=== PATIENT | female | born 1935 | race Caucasian/White ===

== ENCOUNTER 2019-07-05 20:07 | Emergency (ER) | payer OTHER ==
--- OUTSIDE RECORDS SUMMARY | 2019-07-05 20:15 | XMS REPORT | Continuity of Care Document ---
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 Jw Nieto MD Onset: 04/2014 heart failure Hypothyroidism Jw Nieto MD Onset: 11/05/2013 Acute exacerbation of chronic obstructive airways Jw Nieto MD Onset: 2013 disease Cataract Jw Nieto MD Onset: 08/07/2014 Social History Type Date Description Comments Sex Unknown ETOH Use Never used alcohol Tobacco Use Start: Unknown Patient has never smoked Smoking Status Reviewed: 11/08/17 Patient has never smoked Allergies, Adverse Reactions, Alerts Active Allergies Reaction Severity Comments Date Cephalexin Diarrhea 06/21/2018 Inactive Allergies NKDA 11/05/2013 Medications Active Medications SIG Qnty Indications Ordering Date Provider Synthroid 1 by mouth every 90tabs Jw Nieto MD 03/28/2018 75mcg day take on empty Tablets stomache without other medicatins or food Norvasc 1 by mouth every 90tabs Jw Nieto MD 11/23/2016 5mg Tablets day [place] for gait 1unjames Nieto MD 11/23/2016 Wheels/5 Adjustment instability Holes/-11/06" 1-11/06" Misc Vitamin B12 as directed tab 2 Jw Nieto MD 09/21/2015 1000mcg by mouth every day Tablets Ocuvite-Lutein 1 tab po qd Jw Nieto MD 09/21/2015 20mg Capsules Omeprazole 1 po qd 90caps Jw Nieto MD 10/17/2014 40mg Capsules Albuterol Sulfate as directed four 100unjames Nieto MD 11/05/2013 times a day prn. (2.5mg/3ML) 0.083% Nebulizer Ventolin HFA 2 puff qid prn 1units Jw Nieto MD 11/05/2013 108(90Base) mcg/Act Aerosol Alendronate Sodium take 1 tablet by 12tatori Nieto MD 11/05/2013 mouth weekly 70mg Tablets Metoprolol Tartrate 1 by mouth every 90tabs Jw Nieto MD 11/05/2013 day 50mg Tablets Gemfibrozil 1 po qd 90tabs Jw Nieto MD 11/05/2013 600mg Tablets Stiolto Respimat 2 puffs once daily Unknown 2.5-2.5mcg/Act Aerosol Coricidin HBP Cold & as needed Unknown Flu Tablets Robitussin Cough & as needed Unknown Chest Congestion DM Adult 20-400mg/20ML Liquid Fluocinonide as needed for Unknown 0.05% psoriasis Solution Vitamin E Blend 1 tab po qd Unknown 800Iu Capsules Vitamin C 1 per day Unknown 500mg Tablets Fish Oil 1 per day Unknown 1200mg Capsules Vitamin D3 1 per day Unknown 2000Unit Capsules Vitamin A 1 per day Jw Nieto MD 8000Unit Capsules Systane as needed for dry Unknown 0.4-0.3% Gel eye Probiotic Colon 1 tab po qd Unknown Support Capsules Cranberry 1 tab po qd Unknown Concentrate 500mg Capsules Beta Carotene 1 tab po qd Unknown [id number] Capsules Immunizations CPT Code Status Date Vaccine Lot # [id number] Given 07/02/2019 Influenza Virus (Afluria) Split Virus 3 Years [id number] Of Age And Older Q2035 Given 08/10/2018 Influenza Virus (Afluria) Split Virus 3 Years Of Age And Older [id number] Given 08/10/2018 Influenza Virus (Afluria) Split Virus 3 Years Of Age And Older [id number] Given 09/13/2017 Influenza Virus (Afluria) Split Virus 3 Years [id number] Of Age And Older [id number] Given 11/23/2016 Pneumovax Polyvalent Inj Im [id number] Given 2015 Pneumococcal Conjugate Vaccine 13 Valent For [id number] Intramuscular Use Vital Signs Date Vital Result Comment 07/02/2019 10:47am BP Systolic 128 mmHg BP Diastolic 76 mmHg Heart Rate 108 /min Weight 137.00 lb O2 % BldC Oximetry 96 % 04/30/2019 10:53am BP Systolic 128 mmHg BP Diastolic 70 mmHg Heart Rate 58 /min Results Test Date Facility Test Result H/L Range Note Urinalysis With 05/13/2019 [facility] Urine Color RED Yellow [address] [place] [address] [phone] Urine Clarity TURBID Clear Urine Glucose - Dipstick NEGATIVE mg/dL Negative Urine Bilirubin - Dipstick SMALL Abnormal Negative Urine Ketone NEGATIVE mg/dL Negative Urine Specific [place] 1.025 Normal 1.010-1.030 Urine Blood LARGE Abnormal Negative Urine PH 6.5 Normal 6.5-7.5 Urine Protein - Dipstick >=300 mg/dL High Negative Urine Urobilinogen - Dipstick 0.2 E.U./dL Normal 0.2-1.0 Urine Nitrite - Dipstick NEGATIVE Negative Urine Leuk Esterase SMALL Abnormal Negative Urine RBC TNTC rbc/hpf High 0-2 Urine WBC > 50 wbc/hpf High 0-7 Urine Epithelial Cells FEW /lpf None Seen Urine Bacteria FEW None Seen Source: URINE, CLEAN CAT <SEE NOTE> 2 Urine Culture 05/13/2019 [facility] Urine Culture KLEBSIELLA Abnormal [address] [place]UM <[place] [address] NOTE> [phone] Quantity 10,000 - 50,000 <SEE NOTE> 4 Ast-GN67 05/13/2019 [facility] Nitrofurantoin <=[address] [place] [address] [phone] Trimethoprim/Sulfamethoxazole <=20 Susceptible Ampicillin 16 Resistant Cefazolin <=4 Susceptible Ampicillin/Sulbactam 4 Susceptible Ciprofloxacin <=0.25 Susceptible Piperacillin/Tazobactam <=4 Susceptible Ceftazidime <=1 Susceptible Ceftriaxone <=1 Susceptible Cefepime <=1 Susceptible Levofloxacin <=0.12 Susceptible Imipenem 1 Susceptible Gentamicin <=1 Susceptible Tobramycin <=1 Susceptible CBS W/Automated 05/13/2019 [facility] White Blood 16.7 K/uL High 3.1-10.[address] [place] [address] [phone] Red Blood Count 3.73 M/uL Low 3.90-5.40 Hemoglobin 11.7 gm/dL Normal 11.6-15.8 Hematocrit 35.3 % Low 36.0-46.1 Mean Cell Volume 94.6 fl Normal 80.9-99.0 Mean Corpuscular HGB 31.4 pg Normal 25.9-32.7 Mean Corpuscular HGB Conc 33.1 g/dL Normal 30.8-34.3 Platelet Count 350 K/uL Normal 155-360 Red Cell Distri Width SD 48.9 fl High 36-47 Red Cell Distri Width %CV 14.2 % Normal 11.7-14.4 Mean Platelet Volume 11.1 fl Normal 8.9-12.4 Neut% 75.4 % High 40.4-72.8 Lymph % 8.6 % Low 20.0-42.0 Cross % 11.5 % Normal 4.3-13.2 Eo% 3.5 % Normal 0.0-6.6 Bas% 0.5 % Normal 0.0-1.1 Immature Grans 0.5 % Normal 0.0-5.0 NRBC % 0.0 /100WBC < 10/ 100 WBC Neut# 12.54 K/uL High 1.8-7.0 Lymph # 1.44 K/uL Normal 1.0-4.0 Cross # 1.92 K/uL High 0.3-0.9 Eos # 0.59 K/uL High 0.0-0.5 Baso # 0.08 K/uL Normal 0.0-0.1 Immature Grans Absolute 0.08 K/uL NRBC # 0.00 K/uL Slide Review 05/13/2019 [facility] Slide Review DIFF ORDERED [address] [place] [address] [phone] Differential-WBC 05/13/2019 [facility] Total Cells 100 #CELLS Confirm [address] [place] [address] [phone] Band% 8 % Normal 0-8 Neutrophils% 72 % Normal 33-73 Lymph% 5 % Low 20-42 Monocyte% 12 % High 0-10 Eosinophil% 2 % Normal 0-5 Basophil% 1 % Normal 0-2 Platelet Estimate NORMAL Anisocytosis 0-1+ Macrocytosis 0-1+ Differential Comment FEW LRG PLTS Comprehensive 05/13/2019 [facility] Glucose 117 mg/ dL High 74-106 Metabolic Panel [address] [place] [address] [phone] BUN 39 mg/dL High 7-18 Creatinine 1.3 mg/dL Normal 0.6-1.3 Glom Filtration Rate, Estimate 41 mL/min >60 If 50 mL/min >60 5 BUN/Creat 30.0 ratio Sodium 143 mmol/L Normal 136-145 Potassium 4.5 mmol/L Normal 3.5-5.1 Chloride 117 mmol/L Critical high 98-107 Carbon Dioxide 15 mmol/L Low 21-32 Anion Gap 11 mEq/L Normal 8-16 Calcium 9.1 mg/dL Normal 8.5-10.1 Total Protein 7.7 g/dL Normal 6.4-8.2 Albumin 3.7 g/dL Normal 3.4-5.0 Globulin 4.0 g/dL Normal 1.9-4.3 Alb/Glob 0.9 ratio Bilirubin,Total 0.6 mg/dL Normal 0.2-1.0 Sgot/Ast 12 U/L Low 15-37 6 SGPT/Alt 14 U/L Normal 12-78 Alkaline Phosphatase 114 U/L Normal 45-117 Laboratory test 05/13/2019 [facility] Lipase 50 U/L Low 56-[address] [place], [place] [id number] [phone] Protime 05/13/2019 [facility] Protime 15.1 seconds High 12.0-14.[address] [place] [address] [phone] Inr 1.2 High 0.9-1.1 7 Basic Metabolic 04/10/2019 [facility] Glucose 96 mg/ dL Normal 74-106 [address] [place] [address] [phone] BUN 30 mg/dL High 7-18 Creatinine 0.9 mg/dL Normal 0.6-1.3 Glom Filtration Rate, Estimate >60 mL/min >60 If >60 mL/min >60 9 BUN/Creat 33.3 ratio Sodium 140 mmol/L Normal 136-145 Potassium 4.1 mmol/L Normal 3.5-5.1 Chloride 109 mmol/L High 98-107 Carbon Dioxide 22 mmol/L Normal 21-32 Anion Gap 9 mEq/L Normal 8-16 Calcium 9.4 mg/dL Normal 8.5-10.1 Basic Metabolic 04/09/2019 [facility] Glucose 99 mg/ dL Normal 74-[address] [place] [address] [phone] BUN 33 mg/dL High 7-18 Creatinine 1.0 mg/dL Normal 0.6-1.3 Glom Filtration Rate, Estimate 56 mL/min >60 If >60 mL/min >60 10 BUN/Creat 33.0 ratio Sodium 140 mmol/L Normal 136-145 Potassium 3.9 mmol/L Normal 3.5-5.1 Chloride 110 mmol/L High 98-107 Carbon Dioxide 23 mmol/L Normal 21-32 Anion Gap 7 mEq/L Low 8-16 Calcium 9.4 mg/dL Normal 8.5-10.1 CBS W/Automated 04/09/2019 [facility] White 8.8 K/uL Normal 3.1-10.[address] [place] [address] Count [phone] Red Blood Count 4.34 M/uL Normal 3.90-5.40 Hemoglobin 13.0 gm/dL Normal 11.6-15.8 Hematocrit 41.0 % Normal 36.0-46.1 Mean Cell Volume 94.5 fl Normal 80.9-99.0 Mean Corpuscular HGB 30.0 pg Normal 25.9-32.7 Mean Corpuscular HGB Conc 31.7 g/dL Normal 30.8-34.3 Platelet Count 346 K/uL Normal 155-360 Red Cell Distri Width SD 47.8 fl High 36-47 Red Cell Distri Width %CV 13.9 % Normal 11.7-14.4 Mean Platelet Volume 11.5 fl Normal 8.9-12.4 Neut% 51.9 % Normal 40.4-72.8 Lymph % 25.8 % Normal 20.0-42.0 Cross % 11.9 % Normal 4.3-13.2 Eo% 8.9 % High 0.0-6.6 Bas% 1.0 % Normal 0.0-1.1 Immature Grans 0.5 % Normal 0.0-5.0 NRBC % 0.0 /100WBC < 10/ 100 WBC Neut# 4.55 K/uL Normal 1.8-7.0 Lymph # 2.26 K/uL Normal 1.0-4.0 Cross # 1.04 K/uL High 0.3-0.9 Eos # 0.78 K/uL High 0.0-0.5 Baso # 0.09 K/uL Normal 0.0-0.1 Immature Grans Absolute 0.04 K/uL NRBC # 0.00 K/uL Basic Metabolic 04/08/2019 [facility] Glucose 95 mg/ dL Normal 74-[address] [place], [place] [id number] [phone] BUN 28 mg/dL High 7-18 Creatinine 1.0 mg/dL Normal 0.6-1.3 Glom Filtration Rate, Estimate 56 mL/min >60 If >60 mL/min >60 11 BUN/Creat 28.0 ratio Sodium 142 mmol/L Normal 136-145 Potassium 3.9 mmol/L Normal 3.5-5.1 Chloride 109 mmol/L High 98-107 Carbon Dioxide 23 mmol/L Normal 21-32 Anion Gap 10 mEq/L Normal 8-16 Calcium 9.0 mg/dL Normal 8.5-10.1 CBC 04/08/2019 [facility] White Blood Count 9.0 K/uL Normal 3.1-10.[address] [place] [address] [phone] Red Blood Count 4.04 M/uL Normal 3.90-5.40 Hemoglobin 12.5 gm/dL Normal 11.6-15.8 Hematocrit 37.7 % 36.0-46.1 Mean Cell Volume 93.3 fl Normal 80.9-99.0 Mean Corpuscular HGB 30.9 pg Normal 25.9-32.7 Mean Corpuscular HGB Conc 33.2 g/dL Normal 30.8-34.3 Platelet Count 356 K/uL Normal 155-360 Red Cell Distri Width SD 47.7 fl High 36-47 Red Cell Distri Width %CV 14.0 % Normal 11.7-14.4 Mean Platelet Volume 11.7 fl Normal 8.9-12.4 NRBC % 0.0 /100WBC < 10/ 100 WBC CBC 04/07/2019 [facility] White Blood Count 9.4 K/uL Normal 3.1-10.[address] [place], [place] [id number] [phone] Red Blood Count 4.59 M/uL Normal 3.90-5.40 Hemoglobin 14.4 gm/dL Normal 11.6-15.8 Hematocrit 42.1 % Normal 36.0-46.1 Mean Cell Volume 91.7 fl Normal 80.9-99.0 Mean Corpuscular HGB 31.4 pg Normal 25.9-32.7 Mean Corpuscular HGB Conc 34.2 g/dL Normal 30.8-34.3 Platelet Count 382 K/uL High 155-360 Red Cell Distri Width SD 46.6 fl Normal 36-47 Red Cell Distri Width %CV 14.0 % Normal 11.7-14.4 Mean Platelet Volume 11.2 fl Normal 8.9-12.4 NRBC % 0.0 /100WBC < 10/ 100 WBC Basic Metabolic 04/07/2019 [facility] Glucose 148 mg/ dL High 74-[address] [place] [address] [phone] BUN 21 mg/dL High 7-18 Creatinine 0.9 mg/dL Normal 0.6-1.3 Glom Filtration Rate, Estimate >60 mL/min >60 If >60 mL/min >60 12 BUN/Creat 23.3 ratio Sodium 140 mmol/L Normal 136-145 Potassium 3.6 mmol/L Normal 3.5-5.1 Chloride 112 mmol/L High 98-107 Carbon Dioxide 19 mmol/L Low 21-32 Anion Gap 9 mEq/L Normal 8-16 Calcium 9.6 mg/dL Normal 8.5-10.1 CBS W/Automated 04/06/2019 [facility] White 9.0 K/uL Normal 3.1-10.[address] [place] [address] Count [phone] Red Blood Count 4.24 M/uL Normal 3.90-5.40 Hemoglobin 13.0 gm/dL Normal 11.6-15.8 Hematocrit 39.8 % Normal 36.0-46.1 Mean Cell Volume 93.9 fl Normal 80.9-99.0 Mean Corpuscular HGB 30.7 pg Normal 25.9-32.7 Mean Corpuscular HGB Conc 32.7 g/dL Normal 30.8-34.3 Platelet Count 352 K/uL Normal 155-360 Red Cell Distri Width SD 47.2 fl High 36-47 Red Cell Distri Width %CV 13.9 % Normal 11.7-14.4 Mean Platelet Volume 11.6 fl Normal 8.9-12.4 Neut% 57.5 % Normal 40.4-72.8 Lymph % 23.1 % Normal 20.0-42.0 Cross % 9.8 % Normal 4.3-13.2 Eo% 8.5 % High 0.0-6.6 Bas% 0.8 % Normal 0.0-1.1 Immature Grans 0.3 % Normal 0.0-5.0 NRBC % 0.0 /100WBC < 10/ 100 WBC Neut# 5.18 K/uL Normal 1.8-7.0 Lymph # 2.08 K/uL Normal 1.0-4.0 Cross # 0.88 K/uL Normal 0.3-0.9 Eos # 0.77 K/uL High 0.0-0.5 Baso # 0.07 K/uL Normal 0.0-0.1 Immature Grans Absolute 0.03 K/uL NRBC # 0.00 K/uL Basic Metabolic 04/06/2019 [facility] Glucose 104 mg/ dL Normal 74-[address] [place] [address] [phone] BUN 18 mg/dL Normal 7-18 Creatinine 0.8 mg/dL Normal 0.6-1.3 Glom Filtration Rate, Estimate >60 mL/min >60 If >60 mL/min >60 13 BUN/Creat 22.5 ratio Sodium 142 mmol/L Normal 136-145 Potassium 3.7 mmol/L Normal 3.5-5.1 Chloride 114 mmol/L High 98-107 Carbon Dioxide 20 mmol/L Low 21-32 Anion Gap 8 mEq/L Normal 8-16 Calcium 8.9 mg/dL Normal 8.5-10.1 Ua RFX Micro & 04/05/2019 [facility] Urine Color YELLOW Yellow Culture II [address] [place] [address] [phone] Urine Clarity CLEAR Clear Urine Glucose - Dipstick NEGATIVE mg/dL Negative Urine Bilirubin - Dipstick NEGATIVE Negative Urine Ketone NEGATIVE mg/dL Negative Urine Specific [place] <= 1.005 Low 1.010-1.030 Urine Blood NEGATIVE Negative Urine PH 6.5 Normal 6.5-7.5 Urine Protein - Dipstick 30 mg/dL High Negative Urine Urobilinogen - Dipstick 0.2 E.U./dL Normal 0.2-1.0 Urine Nitrite - Dipstick NEGATIVE Negative Urine Leuk Esterase NEGATIVE Negative Source: URINE, CLEAN CAT <SEE NOTE> 14 Aot Request 04/05/2019 [facility] Aot Request Test(s ) added [address] [place] [address] [phone] Tests to be added: crp, sed rate Aot Request 04/05/2019 [facility] Aot Request Test(s ) added 16 [address] [facility] [place] [address] [phone] Tests to be added: free T4 1 VAGINAL BLEEDING 2 URINE, CLEAN CATCH 3 KLEBSIELLA PNEUMONIAE 4 10,000 - 50,000 CFU/mL 5 Note: Persistent reduction for 3 months or more in an eGFR <60 mL/min/1.73 m2 defines CKD. Patients with eGFR values >/=60 mL/min/1.73 m2 may also have CKD if evidence of persistent proteinuria is present. The original MDRD equation for estimated GFR is not valid for patients less than 18 years of age. Additional information may be found at [email or web address]. 6 Values below the stated reference ranges of AST and ALT can be seen in normal populations. Clinical correlation is suggested. 7 THERAPEUTIC INR RANGE: 2.0 - 3.0 DVT, Pulmonary embolus, prophylaxis against venous thrombosis or systemic embolization in high risk patients. 2.5 - 3.5 Mechanical heart valves 8 ATRIAL FIBRILLATION NEW 9 Note: Persistent reduction for 3 months or more in an eGFR <60 mL/min/1.73 m2 defines CKD. Patients with eGFR values >/=60 mL/min/1.73 m2 may also have CKD if evidence of persistent proteinuria is present. The original MDRD equation for estimated GFR is not valid for patients less than 18 years of age. Additional information may be found at [email or web address]. 10 Note: Persistent reduction for 3 months or more in an eGFR <60 mL/min/1.73 m2 defines CKD. Patients with eGFR values >/=60 mL/min/1.73 m2 may also have CKD if evidence of persistent proteinuria is present. The original MDRD equation for estimated GFR is not valid for patients less than 18 years of age. Additional information may be found at [email or web address]. 11 Note: Persistent reduction for 3 months or more in an eGFR <60 mL/min/1.73 m2 defines CKD. Patients with eGFR values >/=60 mL/min/1.73 m2 may also have CKD if evidence of persistent proteinuria is present. The original MDRD equation for estimated GFR is not valid for patients less than 18 years of age. Additional information may be found at [email or web address]. 12 Note: Persistent reduction for 3 months or more in an eGFR <60 mL/min/1.73 m2 defines CKD. Patients with eGFR values >/=60 mL/min/1.73 m2 may also have CKD if evidence of persistent proteinuria is present. The original MDRD equation for estimated GFR is not valid for patients less than 18 years of age. Additional information may be found at [email or web address]. 13 Note: Persistent reduction for 3 months or more in an eGFR <60 mL/min/1.73 m2 defines CKD. Patients with eGFR values >/=60 mL/min/1.73 m2 may also have CKD if evidence of persistent proteinuria is present. The original MDRD equation for estimated GFR is not valid for patients less than 18 years of age. Additional information may be found at [email or web address]. 14 URINE, CLEAN CATCH 15 Tests: crp, sed rate Instructions: 16 Tests: free T4 Instructions: Procedures Description No Information Available Medical Devices Description No Information Available Encounters Type Date Location Provider Dx Diagnosis Office Visit 07/02/2019 10:30a Main Office Jw Nieto MD M54.42 Lumbago with sciatica, left side R31.9 Hematuria, unspecified Office Visit 04/30/2019 10:45a Main Office Briana Julien M54.42 Lumbago with M.D. 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 04/30/2019 J44.9 Chronic obstructive pulmonary disease, Briana Julien M.D. unspecified 04/30/2019 E03.9 Hypothyroidism, darwinified Briana Julien M.D. 04/30/2019 M15.9 Polyosteoarthritis, unspecified Briana Julien M.D. 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 Jw Nieto MD 01/01/2019 N30.80 Other cystitis without hematuria Jw Nieto MD 01/01/2019 I11.9 Hypertensive heart disease without heart failure Jw Nieto MD 01/01/2019 E03.9 Hypothyroidism, unspecified Jerrodyn MD Emilia 01/01/2019 M15.9 Polyosteoarthritis, unspecified Jerrodyn MD Emilia 01/01/2019 J44.9 Chronic obstructive pulmonary disease, Jerrodyn MD Emilia unspecified 01/01/2019 E66.9 Obesity, unspecified Jw Nieto MD Plan of Treatment Future Appointment(s):10/01/2019 8:00 am - Nurse at Main [facility]9910/09/2019 1: 00 pm - Jw Nieto MD at Main [facility]9707/02/2019 - Jw Nieto MDM54.42 Lumbago with sciatica, left sideComments:NO FURTHUR COMPLAINTSIMAGING STUDIES [id number] Hematuria, unspecifiedComments:IN APRIL, ED IE FOR SAME, CALDERON CATH IN AND REMOVEDMANAGED BY DR Wilson:REFER TO [facility] FOR EVALUATION.SHE IS LARGELY HOME BOUND EXCEPT FOR PHYSICAIN VISITSRTO DECGHP, LIPIDS BEFORE VISIT Functional Status Description No Information Available Mental Status Description No Information Available Referrals Description No Information Available
--- OUTSIDE RECORDS SUMMARY | 2019-07-05 20:15 | XMS REPORT | Continuity of Care Document ---
:1935 External Reference #:[id number] Author Name Jw Nieto MD (transmitted by agent of provider Teresa Simons) Address [address] [place] [address] Problems Active Problems Provider Date Benign hypertensive [...] Nieto MD 11/23/2016 5mg Tablets day Walker [place] for gait 1units Jw Nieto MD 11/23/2016 Wheels/5 Adjustment instability Holes/-11/06" 1-11/06" Misc Citalopram tab 1 by mouth 90tatori Nieto MD 12/23/2015 Hydrobromide every day 20mg Tablets Vitamin B12 as directed tab 2 Jw Nieto MD 09/21/2015 1000mcg by mouth every day Tablets Ocuvite-Lutein 1 tab po qd Jw Nieto MD 09/21/2015 20mg Capsules Omeprazole 1 po qd 90caps Jw Nieto MD 10/17/[address] Albuterol Sulfate as directed four 100unjames Nieto MD 11/05/2013 times a day prn. (2.5mg/3ML) 0.083% Nebulizer Ventolin HFA 2 puff qid prn 1unjames Nieto MD 11/05/2013 108(90Base) mcg/Act Aerosol Alendronate [...] Beta Carotene 1 tab po qd Unknown [id number] Capsules Immunizations CPT Code Status Date Vaccine Lot # [id number] Given 08/10/2018 Influenza Virus (Afluria) Split Virus 3 Years Of Age And Older Q2035 Given 08/10/2018 Influenza Virus (Afluria) Split Virus 3 Years Of Age And Older Q2035 Given 09/13/2017 Influenza Virus (Afluria) Split Virus 3 Years Of [id number] Age And Older [id number] Given 11/23/2016 Pneumovax Polyvalent Inj Im [id number] Given 2015 Pneumococcal Conjugate Vaccine 13 Valent For [id number] Intramuscular Use Vital Signs Date Vital Result Comment 07/02/2019 10:47am BP Systolic 128 mmHg BP Diastolic 76 mmHg Heart Rate 108 /min Weight 137.00 lb O2 % BldC Oximetry 96 % 04/30/2019 10:53am BP Systolic 128 mmHg BP Diastolic 70 mmHg Heart Rate 58 /min Results Test Date Facility Test Result H/L Range Note Urinalysis With 05/13/2019 [facility] Urine Color RED Yellow [address] [place] [address] [phone] Urine Clarity TURBID Clear Urine Glucose - Dipstick NEGATIVE mg/dL Negative Urine Bilirubin - Dipstick SMALL Abnormal Negative Urine Ketone NEGATIVE mg/dL Negative Urine Specific [place] 1.025 Normal 1.010-1.030 Urine Blood LARGE Abnormal [...] CAT <SEE NOTE> 2 Urine Culture 05/13/2019 [facility] Urine Culture KLEBSIELLA Abnormal [address] [place] <[place] [address] NOTE> [phone] Quantity 10,000 - 50,000 <SEE NOTE> 4 Ast-GN67 05/13/2019 [facility] Nitrofurantoin <=[address] [place] [address] [phone] Trimethoprim/Sulfamethoxazole <=20 Susceptible Ampicillin 16 Resistant Cefazolin <=4 Susceptible Ampicillin/Sulbactam 4 Susceptible Ciprofloxacin <=0.25 Susceptible Piperacillin/Tazobactam <=4 Susceptible Ceftazidime <=1 Susceptible Ceftriaxone <=1 Susceptible Cefepime <=1 Susceptible Levofloxacin <=0.12 Susceptible Imipenem 1 Susceptible Gentamicin <=1 Susceptible Tobramycin <=1 Susceptible CBS W/Automated 05/13/2019 [facility] White Blood 16.7 K/uL High 3.1-10.[address] [place] [address] [phone] Red Blood Count 3.73 M/uL Low 3.90-5.40 [...] 40.4-72.8 Lymph % 8.6 % Low 20.0-42.0 Coleman % 11.5 % Normal 4.3-13.2 Eo% 3.5 % Normal 0.0-6.6 Bas% 0.5 % Normal 0.0-1.1 Immature Grans 0.5 % Normal 0.0-5.0 NRBC % 0.0 /100WBC < 10/ 100 WBC Neut# 12.54 K/uL High 1.8-7.0 Lymph # 1.44 K/uL Normal 1.0-4.0 Coleman # 1.92 K/uL High 0.3-0.9 Eos # 0.59 K/uL High 0.0-0.5 Baso # 0.08 K/uL Normal 0.0-0.1 Immature Grans Absolute 0.08 K/uL NRBC # 0.00 K/uL Slide Review 05/13/2019 [facility] Slide Review DIFF ORDERED [address] [place] [address] [phone] Differential-WBC 05/13/2019 [facility] Total Cells 100 #CELLS Confirm [address] [place] [address] [phone] Band% 8 % Normal 0-8 Neutrophils% 72 % Normal 33-73 Lymph% 5 % Low 20-42 Monocyte% 12 % High 0-10 Eosinophil% 2 % Normal 0-5 Basophil% 1 % Normal 0-2 Platelet Estimate NORMAL Anisocytosis 0-1+ Macrocytosis 0-1+ Differential Comment FEW LRG PLTS Comprehensive 05/13/2019 [facility] Glucose 117 mg/ dL High 74-106 Metabolic Panel [address] [place], [place] [address] [phone] BUN 39 mg/dL High 7-18 Creatinine 1.3 [...] 114 U/L Normal 45-117 Laboratory test 05/13/2019 [facility] Lipase 50 U/L Low 56-[address] [place], [place] [address] [phone] Protime 05/13/2019 [facility] Protime 15.1 seconds High 12.0-14.[address] [place] [address] [phone] Inr 1.2 High 0.9-1.1 7 Basic Metabolic 04/10/2019 [facility] Glucose 96 mg/ dL Normal 74-106 [address] [place], [place] [address] [phone] BUN 30 mg/dL High 7-18 Creatinine 0.9 mg/dL Normal 0.6-1.3 Glom Filtration Rate, Estimate >60 mL/min >60 If >60 mL/min >60 9 BUN/Creat 33.3 ratio Sodium 140 mmol/L Normal 136-145 Potassium 4.1 mmol/L Normal 3.5-5.1 Chloride 109 mmol/L High 98-107 Carbon Dioxide 22 mmol/L Normal 21-32 Anion Gap 9 mEq/L Normal 8-16 Calcium 9.4 mg/dL Normal 8.5-10.1 Basic Metabolic 04/09/2019 [facility] Glucose 99 mg/ dL Normal 74-[address] [place] [address] [phone] BUN 33 mg/dL High 7-18 Creatinine 1.0 mg/dL Normal 0.6-1.3 Glom Filtration Rate, Estimate 56 mL/min >60 If >60 mL/min >60 10 BUN/Creat 33.0 ratio Sodium 140 mmol/L Normal 136-145 Potassium 3.9 mmol/L Normal 3.5-5.1 Chloride 110 mmol/L High 98-107 Carbon Dioxide 23 mmol/L Normal 21-32 Anion Gap 7 mEq/L Low 8-16 Calcium 9.4 mg/dL Normal 8.5-10.1 CBS W/Automated 04/09/2019 [facility] White 8.8 K/uL Normal 3.1-10.[address] [place] [address] Count [phone] Red Blood Count 4.34 M/uL Normal 3.90-5.40 [...] 40.4-72.8 Lymph % 25.8 % Normal 20.0-42.0 Coleman % 11.9 % Normal 4.3-13.2 Eo% 8.9 % High 0.0-6.6 Bas% 1.0 % Normal 0.0-1.1 Immature Grans 0.5 % Normal 0.0-5.0 NRBC % 0.0 /100WBC < 10/ 100 WBC Neut# 4.55 K/uL Normal 1.8-7.0 Lymph # 2.26 K/uL Normal 1.0-4.0 Coleman # 1.04 K/uL High 0.3-0.9 Eos # 0.78 K/uL High 0.0-0.5 Baso # 0.09 K/uL Normal 0.0-0.1 Immature Grans Absolute 0.04 K/uL NRBC # 0.00 K/uL Basic Metabolic 04/08/2019 [facility] Glucose 95 mg/ dL Normal 74-[address] [place] [address] [phone] BUN 28 mg/dL High 7-18 Creatinine 1.0 mg/dL Normal 0.6-1.3 Glom Filtration Rate, Estimate 56 mL/min >60 If >60 mL/min >60 11 BUN/Creat 28.0 ratio Sodium 142 mmol/L Normal 136-145 Potassium 3.9 mmol/L Normal 3.5-5.1 Chloride 109 mmol/L High 98-107 Carbon Dioxide 23 mmol/L Normal 21-32 Anion Gap 10 mEq/L Normal 8-16 Calcium 9.0 mg/dL Normal 8.5-10.1 CBC 04/08/2019 [facility] White Blood Count 9.0 K/uL Normal 3.1-10.[address] [place] [address] [phone] Red Blood Count 4.04 M/uL Normal 3.90-5.40 [...] /100WBC < 10/ 100 WBC CBC 04/07/2019 [facility] White Blood Count 9.4 K/uL Normal 3.1-10.[address] [place] [address] [phone] Red Blood Count 4.59 M/uL Normal 3.90-5.40 [...] < 10/ 100 WBC Basic Metabolic 04/07/2019 [facility] Glucose 148 mg/ dL High 74-[address] [place] [address] [phone] BUN 21 mg/dL High 7-18 Creatinine 0.9 mg/dL Normal 0.6-1.3 Glom Filtration Rate, Estimate >60 mL/min >60 If >60 mL/min >60 12 BUN/Creat 23.3 ratio Sodium 140 mmol/L Normal 136-145 Potassium 3.6 mmol/L Normal 3.5-5.1 Chloride 112 mmol/L High 98-107 Carbon Dioxide 19 mmol/L Low 21-32 Anion Gap 9 mEq/L Normal 8-16 Calcium 9.6 mg/dL Normal 8.5-10.1 CBS W/Automated 04/06/2019 [facility] White 9.0 K/uL Normal 3.1-10.[address] [place] [address] Count [phone] Red Blood Count 4.24 M/uL Normal 3.90-5.40 [...] 40.4-72.8 Lymph % 23.1 % Normal 20.0-42.0 Coleman % 9.8 % Normal 4.3-13.2 Eo% 8.5 % High 0.0-6.6 Bas% 0.8 % Normal 0.0-1.1 Immature Grans 0.3 % Normal 0.0-5.0 NRBC % 0.0 /100WBC < 10/ 100 WBC Neut# 5.18 K/uL Normal 1.8-7.0 Lymph # 2.08 K/uL Normal 1.0-4.0 Coleman # 0.88 K/uL Normal 0.3-0.9 Eos # 0.77 K/uL High 0.0-0.5 Baso # 0.07 K/uL Normal 0.0-0.1 Immature Grans Absolute 0.03 K/uL NRBC # 0.00 K/uL Basic Metabolic 04/06/2019 [facility] Glucose 104 mg/ dL Normal 74-[address] [place] [address] [phone] BUN 18 mg/dL Normal 7-18 Creatinine 0.8 mg/dL Normal 0.6-1.3 Glom Filtration Rate, Estimate >60 mL/min >60 If >60 mL/min >60 13 BUN/Creat 22.5 ratio Sodium 142 mmol/L Normal 136-145 Potassium 3.7 mmol/L Normal 3.5-5.1 Chloride 114 mmol/L High 98-107 Carbon Dioxide 20 mmol/L Low 21-32 Anion Gap 8 mEq/L Normal 8-16 Calcium 8.9 mg/dL Normal 8.5-10.1 Ua RFX Micro & 04/05/2019 [facility] Urine Color YELLOW Yellow Culture II [address] [place] [address] [phone] Urine Clarity CLEAR Clear Urine Glucose - Dipstick NEGATIVE mg/dL Negative Urine Bilirubin - Dipstick NEGATIVE Negative Urine Ketone NEGATIVE mg/dL Negative Urine Specific [place] <= 1.005 Low 1.010-1.030 Urine Blood NEGATIVE Negative Urine PH 6.5 Normal 6.5-7.5 Urine Protein - Dipstick 30 mg/dL High Negative Urine Urobilinogen - Dipstick 0.2 E.U./dL Normal 0.2-1.0 Urine Nitrite - Dipstick NEGATIVE Negative Urine Leuk Esterase NEGATIVE Negative Source: URINE, CLEAN CAT <SEE NOTE> 14 Aot Request 04/05/2019 [facility] Aot Request Test(s ) added 15 [address] [place] [address] [phone] Tests to be added: crp, sed rate Aot Request 04/05/2019 [facility] Aot Request Test(s ) added 16 [address] [place] [address] [phone] Tests to be added: free T4 1 [...] Date Location Provider Dx Diagnosis Office Visit 04/30/2019 Main Office Briana Julien M.D. 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 04/30/2019 J44.9 Chronic obstructive pulmonary disease, Briana Julien M.D. unspecified 04/30/2019 E03.9 Hypothyroidism, unspecified Briana Julien M.D. 04/30/2019 M15.9 Polyosteoarthritis, unspecified Briana Julien M.D. 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
[2019-07-05 20:26] VITALS: BP 150/95
--- NOTE | 2019-07-05 20:49 | UC ---
Hand/Wrist HPI - HPI Summary HPI Summary: ED 3-year-old woman comes in with a chief complaint of right thumb pain after falling today. Patient denies loss of consciousness. Denies any chest pain or shortness of breath. Pain in the thumb is worse when she tries to move it. No skin break. - History Of Current Complaint Chief Complaint: UCUpperExtremity Stated Complaint: RIGHT THUMB INJURY Time Seen by Provider: 07/05/19 20:26 Pain Intensity: 4 - Allergies/Home Medications Allergies/Adverse Reactions: Allergies Allergy/AdvReac Type Severity Reaction Status Date / Time No Known Allergies Allergy Verified 07/05/19 20:21 Home Medications: Home Medications Citalopram TAB* [CeleXA TAB*] 20 mg PO DAILY 07/05/19 [History Confirmed ] Clobetasol 0.05% OINT* 1 applic TOPICAL BID 07/05/19 [History Confirmed 07/05/19 ] Gemfibrozil TAB* [Lopid TAB*] 600 mg PO DAILY 07/05/19 [History Confirmed 07/05] Ibuprofen TAB* [Motrin TAB* 600 MG] 600 mg PO TID PRN 07/05/19 [History Confirmed 07/05/19] Levothyroxine TAB* [Synthroid TAB*] 75 mcg PO DAILY 07/05/19 [History Confirmed 07/05/19] Metoprolol Tartrate TAB* [Lopressor TAB*] 50 mg PO DAILY 07/05/19 [History Confirmed 07/05/19] Omeprazole (Nf) [Prilosec (NF)] 40 mg PO DAILY 07/05/19 [History Confirmed 07/05] Tiotropium Brom/Olodaterol [Stiolto Respimat Inh [place] (60 puff)] 1 puff INH SEE INSTRUCTIONS 07/05/19 [History Confirmed 07/05/19] traMADol TAB* [Ultram*] 25 mg PO Q4H PRN 07/05/19 [History Confirmed 07/05/19] PMH/Surg Hx/FS Hx/Imm Hx Previously Healthy: Yes Endocrine History: Hypothyroidism Cardiovascular History: Atrial Fibrillation GI/ History: Gastroesophageal Reflux - Surgical History Surgical History: Yes Surgery Procedure, Year, and Place: LEFT EYE- 2008. HYSTERECTOMY. TUBAL LIGATION. [facility] [place]. right cataract 07/2014 - Family History Known Family History: Positive: Non-Contributory - Social History Alcohol Use: None Substance Use Type: None Smoking Status (MU): Never Smoked Tobacco Review of Systems All Other Systems Reviewed And Are Negative: Yes Constitutional: Positive: Negative Skin: Positive: Bruising - RT THUMB Eyes: Positive: Negative ENT: Positive: Negative Respiratory: Positive: Negative Cardiovascular: Positive: Negative Gastrointestinal: Positive: Negative Motor: Positive: Other - SEE HPI Neurovascular: Positive: Negative Musculoskeletal: Positive: Other: - SEE HPI Neurological: Positive: Negative Psychological: Positive: Negative Is Patient Immunocompromised?: No Physical Exam Triage Information Reviewed: Yes Appearance: Well-Appearing, No Pain Distress, Well-Nourished Vital Signs: Initial Vital Signs Temp 98.8 F 07/05/19 20:16 Pulse 144 07/05/19 20:16 Resp 18 07/05/19 20:16 BP 150/95 07/05/19 20:16 Pulse Ox 98 07/05/19 20:16 Vital Signs Reviewed: Yes Eye Exam: Normal Eyes: Positive: Conjunctiva Clear Neck: Positive: Supple Respiratory: Positive: Lungs clear, Normal breath sounds, No respiratory distress Cardiovascular: Positive: Tachycardia Musculoskeletal: Positive: Other: - Right thumb has full range of motion is tender to palpation at the PIP. There is ecchymosis. Normal capillary refill no sensation deficits. Neurological: Positive: Alert Psychological: Positive: Age Appropriate Behavior Skin: Positive: Other - Ecchymosis her right thumb Diagnostics - EKG Cardiac Rate: Tachycardia - AT 2028 Summary of EKG Findings: Tachycardic with a heart rate of 107 bpm. There is supraventricular bigeminy. There are P waves with no QRS indicating a heart block. Is a left bundle branch block. Hand/Wrist Course/Dx - Course Course Of Treatment: Reviewed the x-rays with the patient and her son. Patient is most tender to palpation at the PIP of the right thumb. There are some calcifications at the joint and I'm unsure whether or not this is arthritis or evidence avulsion fracture at the PIP. Patient was placed in a thumb spica splint she does use a walker versus a question of how stable I will be for her. For the thumb the plan is to follow up with orthopedics. For the irregular heart rhythm I recommended further evaluation now in the emergency department. - Differential Dx/Diagnosis Provider Diagnosis: Heart block, Avulsion fracture of right thumb Discharge ED - Sign-Out/Discharge Documenting (check all that apply): Patient Departure All imaging exams completed and their final reports reviewed: No Studies - Discharge Plan Condition: Stable Disposition: HOME-RECOMMEND TO ED Patient Education Materials: Heart Block (ED), Thumb Fracture (ED) Referrals: Jw Nieto MD [Primary Care Provider] - Sorin Flynn MD [Medical Doctor] - Additional Instructions: GO DIRECTLY TO THE EMERGENCY DEPARTMENT FOR FURTHER EVALUATION AND CARE. FOLLOW UP WITH ORTHOPEDICS FOR YOUR THUMB INJURY. - Billing Disposition and Condition Condition: STABLE Disposition: Home-Recommend to ED
== END 2019-07-05 21:57 | disposition home health service (06) ==
LOC: UCCORT 20:07
DX: S69.91XA Unspecified injury of right wrist, hand and finger(s), initial encounter (principal); W19.XXXA Unspecified fall, initial encounter; Y92.9 Unspecified place or not applicable; M19.041 Primary osteoarthritis, right hand; I44.7 Left bundle-branch block, unspecified; R00.0 Tachycardia, unspecified; E03.9 Hypothyroidism, unspecified; K21.9 Gastro-esophageal reflux disease without esophagitis
CPT/HCPCS: 93005; 99203; G0463